=== PATIENT | male | born 1960 | race Caucasian/White ===

== ENCOUNTER → 2025-01-30 | Outpatient (CLI) | payer OTHER | END | disposition home or self-care (01) | LOC: RAD 15:49 | PROVIDERS: ATTEND Nurse Practitioner Family | DX: M17.0 Bilateral primary osteoarthritis of knee (principal); M25.462 Effusion, left knee; M25.461 Effusion, right knee; M25.762 Osteophyte, left knee; M25.761 Osteophyte, right knee; M25.861 Other specified joint disorders, right knee; M25.561 Pain in right knee; M25.562 Pain in left knee | CPT/HCPCS: 73560 ==